=== PATIENT | male | born 1965 | race Caucasian/White ===

== ENCOUNTER 2021-12-24 13:03 | Observation (INO) ==
--- NOTE | 2021-12-24 13:27 | Emergency Department Note ---
Skin/Abscess/FB HPI <Faustino Pérez PA-C - Last Filed: 12/24/21 16:05> General Chief complaint: Skin/Abscess/Rash Stated complaint: skin Time Seen by Provider: 12/24/21 13:11 Source: patient Mode of arrival: ambulatory Limitations: no limitations History of Present Illness HPI Narrative: Narrative: 56-year-old gentleman with a history of lifelong smoking and diabetes presents the ER to be evaluated for an abscess in his mid back that has eschar and has been draining purulence for about a month. He also had a draining abscess on his left shoulder. He denies fever, chills, bodies, nausea, vomiting, chest pain, chest pressure. He is concerned that the abscess keeps recurring and soi ling his shirts. He states it feels with pressure and feels hot sometimes and then drains and then recollects. He denies any other complaints at this time. Related Data Home Medications Medication Instructions Recorded Confirmed No Known Home Meds 12/24/21 12/24/21 Allergies Allergy/AdvReac Type Severity Reaction Status Date / Time lorazepam Allergy Severe Anaphylaxis Verified 12/24/21 13:05 Review of Systems <Faustino Pérez PA-C - Last Filed: 12/24/21 16:05> ROS ROS Narrative: Narrative: All systems ED: reviewed and negative except as stated. PFS <Faustino Pérez PA-C - Last Filed: 12/24/21 16:05> Narrative Patient History Narrative: Narrative: Medical/Surgical/Family History All Active Problems (Updated 12/24/21 @ 16:05 by Faustino Pérez PA-C) Abscess of skin or subcutaneous tissue (Acute) Abscess (Acute) Social History Smoking Status: Current every day smoker Exam <Faustino Pérez PA-C - Last Filed: 12/24/21 16:05> Narrative Narrative: Narrative: Gen: No acute distress Eyes: PERRL, no conjunctival injection , and symmetrical lids. Sclerae non icteric HENMT: Normocephalic Atraumatic head, external nose and ears. Moist MM. CVS: +S1/S2, No murmurs or gallops. Radial pulses 2+ and equal bilat. No swelling RESP: Unlabored respiratory effort . Clear to auscultation bilaterally (CTAB). No noted wheezes rales or ronchi. Back: Large 10 to 15 cm abscess mid back with purulent drainage and eschar with concern for possible malignancy., Left shoulder blade drained open wound without fluctuance or purulence it is open and exposed and appears to be healing appropriately Skin: Warm, Dry . No rashes or lesions . Cap refill less than 2. Psych: Awake, Alert, & Oriented (AAO) x3. Appropriate mood and affect . General Limitations: no limitations Course <Faustino Pérez PA-C - Last Filed: 12/24/21 16:05> Vital Signs Vital signs: Vital Signs Temperature 97.2 F 12/24/21 13:03 Pulse Rate 101 H 12/24/21 13:03 Respiratory Rate 20 12/24/21 13:03 Blood Pressure 128/76 12/24/21 13:03 Pulse Oximetry (%) 97 12/24/21 13:03 Temperature 97.2 F 12/24/21 13:03 Pulse Rate 78 12/24/21 16:26 Respiratory Rate 20 12/24/21 13:03 Blood Pressure 146/61 12/24/21 16:26 Pulse Oximetry (%) 97 12/24/21 13:03 MDM <Faustino Pérez PA-C - Last Filed: 12/24/21 16:05> MDM Narrative Medical decision making narrative: Narrative: Patient has a 10 to 15 cm in diameter abscess with eschar and concern for pos sible malignancy on his back. This looks like it might need surgical drainage and washout. Dr. Guzman the on- call surgeon will be contacted. CBC, CMP, lactate and blood cultures and CRP were ordered at this time. Patient last ate at 10. CBC: Elevated white count with left shift CMP: Glucose of 453 otherwise unremarkable Lactate: No elevation Blood cultures: Pending CRP: 9.[address] Guzman: Requested ultrasound to evaluate abscess US: 222ml in abscess pocket Dr Guzman: He agreed to come down and evaluate the patient in the ER Dr. Guzman will take the patient to surgery at 5:00, we will start him on vancomycin and Zosyn in the ER. Lab Data Result diagrams: 12/24/21 13:25 12/24/21 13:25 Labs: Lab Results 12/24/21 12/24/21 12/24/21 Range/Units 13:25 13:25 13:25 WBC 16.1 H (4.5-11.0) K/mcL RBC 4.72 (4.63-6.08) M/mcL Hgb 13.1 L (13.7-17.5) g/dL Hct 39.1 L (40.1-51.0) % MCV 82.8 (80.0-100.0) fL MCH 27.8 (26.0-34.0) pg MCHC 33.5 (31.0-36.0) g/dL RDW 12.3 (11.5-14.5) % Plt Count 485 H (140-440) K/mcL MPV 8.7 (7.4-10.4) fL Neut % (Auto) 79.6 H (38.0-78.0) % Lymph % (Auto) 11.6 L (15.5-49.0) % Shannon % (Auto) 6.3 (1.0-12.0) % Eos % (Auto) 1.9 (0.0-7.0) % Baso % (Auto) 0.6 (0.0-2.0) % Lymph # (Auto) 1.87 (1.50-4.80) K/mcL Shannon # (Auto) 1.02 H (0.10-0.90) K/mcL Eos # (Auto) 0.31 (0.00-0.70) K/mcL Baso # (Auto) 0.10 (0.00-0.30) K/mcL Absolute Neutrophils 12.84 H (1.80-8.00) K/mcL VBG Lactic Acid 1.0 (0.5-2.0) mmol/L Sodium 132 L (133-145) mmol/L Potassium 4.0 (3.3-5.1) mmol/L Chloride 96 (96-108) mmol/L Carbon Dioxide 25 (22-30) mmol/L Anion Gap 11.0 (8.0-16.0) BUN 12 (6-20) mg/dL Creatinine 0.6 L (0.7-1.2) mg/dL GFR Calculation 114 Glucose 453 H* (70-105) mg/dL Calcium 8.8 (8.6-10.4) mg/dL Total Bilirubin 0.3 (0.1-1.0) mg/dL AST 14 (<40) U/L ALT 22 (<40) U/L Alkaline Phosphatase 139 H (39-117) U/L C-Reactive Protein 9.80 H (0.03-0.80) mg/dL Total Protein 7.1 (5.9-8.4) gm/dL Albumin 3.0 L (3.2-5.2) gm/dL Globulin 4.1 H (2.2-3.7) gm/dL Albumin/Globulin Ratio 0.7 L (1.0-2.3) ED POC Tests ED POC Tests: RUI - SARS Antigen Negative Discharge Plan Patient/Caregiver Discharge Instructions Pt seen by [employer]/PA only: Yes Clinical Impression: Abscess of skin or subcutaneous tissue Patient Disposition: Xfer As Outpt/Obs ([facility]) Condition: Fair Discharge Date/Time: 12/24/21 16:40
[2021-12-24] MEDS ORDERED: morphine 4 MG/ML VIAL IV ONE (14:12)
[2021-12-24 14:13] LABS: Basophils % (Auto) 0.6 % (0.0-2.0); Eosinophils # (Auto) 0.31 K/mcL (0.00-0.70); Eosinophils % (Auto) 1.9 % (0.0-7.0); Hematocrit 39.1 % (40.1-51.0); Hemoglobin 13.1 g/dL (13.7-17.5); Lymphocytes # (Auto) 1.87 K/mcL (1.50-4.80); Lymphocytes % (Auto) 11.6 % (15.5-49.0); Mean Cell Volume 82.8 fL (80.0-100.0); Mean Corpuscular HGB Conc 33.5 g/dL (31.0-36.0); Mean Platelet Volume 8.7 fL (7.4-10.4); Monocytes # (Auto) 1.02 K/mcL (0.10-0.90); Monocytes % (Auto) 6.3 % (1.0-12.0); Neutrophils % (Auto) 79.6 % (38.0-78.0); Platelet Count 485 K/mcL (140-440); RBC 4.72 M/mcL (4.63-6.08); Red Cell Distribution Width 12.3 % (11.5-14.5); WBC 16.1 K/mcL (4.5-11.0)
[2021-12-24 14:51] LABS: ALT/SGPT 22 U/L (<40); AST/SGOT 14 U/L (<40); Albumin/Globulin Ratio 0.7 (1.0-2.3); Alkaline Phosphatase 139 U/L (39-117); Bilirubin,Total 0.3 mg/dL (0.1-1.0); Blood Urea Nitrogen 12 mg/dL (6-20); Calcium 8.8 mg/dL (8.6-10.4); Carbon Dioxide 25 mmol/L (22-30); Chloride 96 mmol/L (96-108); Globulin 4.1 gm/dL (2.2-3.7); Glomerular Filtration Rate 114; Glucose 453 mg/dL (70-105)
[2021-12-24] MEDS ORDERED: VANCOMYCIN PER PHARMACY IV ONE (16:03)
[2021-12-24] MEDS ORDERED: PIPERACILLIN SODIUM/TAZOBACTAM 4.5 GM in DEXTROSE 5% IN WATER 50 ML IV ONE (16:03)
--- NOTE | 2021-12-24 16:19 | Ultrasound Report ---
CLINICAL INFORMATION: Back abscess COMPARISON: None. FINDINGS: In the subcutaneous region there is a large 12.3 x 13 x 3 cm heterogeneous avascular area which could indicate abscess or necrosis. IMPRESSION: 12 x 13 cm subdermal lesion could indicate abscess or necrosis. Suggest surgical referral for drainage and debridement Interpreted and Authenticated by: Alex Lay 12/24/21
[2021-12-24] MEDS ORDERED: VANCOMYCIN 1,500 MG in 0.9 % SODIUM CHLORIDE 500 ML IV ONE (16:30)
--- NOTE | 2021-12-24 17:05 | General Surgery Consult Note ---
HPI Data of Consult Consult date: 12/24/21 Requesting physician: Sander Petty Primary Care Provider: PCP No Consult Narrative Patient Information: Note initiated : 12/24/21 at 4:55 pm Service Date, if different from initiated Date: [] Patient: Shubham Stoddard 56 y/o M admitted on for skin. Chief Complaint: [Back Abscess] Mr Stoddard is seen in consultation today in the ER after presenting earlier today with a large necrotic appearing abscess of the mid upper back. He has had recurrent soft tissue infections here and elsewhere of uncertain etiology. He doesn't engage in much of the way of maintenance health care and denies any home medications. He denies known cardiopulmonary issues and is not on any oral anticoagulants. He smokes and denies any known diabetes. An US was done and confirmed a large abscess. Chief complaint: Back Abscess Reason for consult: Back Abscess cc:: CC: Review of Systems All systems: reviewed and no additional remarkable complaints except as stated PFSH PFSH All Active Problems (Updated 12/24/21 @ 16:05 by Faustino Pérez PA-C) Abscess of skin or subcutaneous tissue (Acute) Abscess (Acute) MEDS/ALLERGIES Home Medications and Allergies Home Medications Medication Instructions Recorded Confirmed Type No Known Home Meds 12/24/21 12/24/21 History Allergies Allergy/AdvReac Type Severity Reaction Status Date / Time lorazepam Allergy Severe Anaphylaxis Verified 12/24/21 13:05 Physical Examination Vital Signs Vital signs: Temp Pulse Resp BP Pulse Ox 97.2 F 78 20 146/61 97 12/24/21 13:03 12/24/21 16:26 12/24/21 13:03 12/24/21 16:26 12/24/21 13:03 General physical appearance General physical exam: other (awake and fully conversant) Eyes Eye exam: normal ocular movement ENT ENT exam: normal pinna; negative nasal discharge Head Head exam IM: Present atraumatic, normal inspection and normocephalic Neck Neck exam: trachea midline and no lymphadenopathy Cardiovascular Cardiovascular exam IM: Present normal rate and rhythm and RRR Respiratory Respiratory exam: normal respiratory effort and other (no distress ) Abdomen Abdomen: Present soft and non tender Integumentary Integumentary: Present other (there is a large necrotic appearing abscess with mild surrounding cellulitis and active drainage in the upper central mid back. Additionally, an open wound is noted on the Left Posterior Shoulder that looks clean with granulation present ) Neurologic Neurologic: Present other (grossly intact, fully alert and oriented ) Psychiatric Psychiatric: Present oriented to time, oriented to person and oriented to place Results Labs Result diagrams: 12/24/21 13:25 12/24/21 13:25 Labs: Abnormal lab results 12/24/21 12/24/21 Range/Units 13:25 13:25 WBC 16.1 H (4.5-11.0) K/mcL Hgb 13.1 L (13.7-17.5) g/dL Hct 39.1 L (40.1-51.0) % Plt Count 485 H (140-440) K/mcL Neut % (Auto) 79.6 H (38.0-78.0) % Lymph % (Auto) 11.6 L (15.5-49.0) % [place] # (Auto) 1.02 H (0.10-0.90) K/mcL Absolute Neutrophils 12.84 H (1.80-8.00) K/mcL Sodium 132 L (133-145) mmol/L Creatinine 0.6 L (0.7-1.2) mg/dL Glucose 453 H* (70-105) mg/dL Alkaline Phosphatase 139 H (39-117) U/L C-Reactive Protein 9.80 H (0.03-0.80) mg/dL Albumin 3.0 L (3.2-5.2) gm/dL Globulin 4.1 H (2.2-3.7) gm/dL Albumin/Globulin Ratio 0.7 L (1.0-2.3) Diabetes panel 12/24/21 Range/Units 13:25 Sodium 132 L (133-145) mmol/L Potassium 4.0 (3.3-5.1) mmol/L Chloride 96 (96-108) mmol/L Carbon Dioxide 25 (22-30) mmol/L BUN 12 (6-20) mg/dL Creatinine 0.6 L (0.7-1.2) mg/dL Glucose 453 H* (70-105) mg/dL Calcium 8.8 (8.6-10.4) mg/dL AST 14 (<40) U/L ALT 22 (<40) U/L Alkaline Phosphatase 139 H (39-117) U/L Total Protein 7.1 (5.9-8.4) gm/dL Albumin 3.0 L (3.2-5.2) gm/dL Calcium panel 12/24/21 Range/Units 13:25 Calcium 8.8 (8.6-10.4) mg/dL Albumin 3.0 L (3.2-5.2) gm/dL Pituitary panel 12/24/21 Range/Units 13:25 Sodium 132 L (133-145) mmol/L Potassium 4.0 (3.3-5.1) mmol/L Chloride 96 (96-108) mmol/L Carbon Dioxide 25 (22-30) mmol/L BUN 12 (6-20) mg/dL Creatinine 0.6 L (0.7-1.2) mg/dL Glucose 453 H* (70-105) mg/dL Calcium 8.8 (8.6-10.4) mg/dL Adrenal panel 12/24/21 Range/Units 13:25 Sodium 132 L (133-145) mmol/L Potassium 4.0 (3.3-5.1) mmol/L Chloride 96 (96-108) mmol/L Carbon Dioxide 25 (22-30) mmol/L BUN 12 (6-20) mg/dL Creatinine 0.6 L (0.7-1.2) mg/dL Glucose 453 H* (70-105) mg/dL Calcium 8.8 (8.6-10.4) mg/dL Total Bilirubin 0.3 (0.1-1.0) mg/dL AST 14 (<40) U/L ALT 22 (<40) U/L Alkaline Phosphatase 139 H (39-117) U/L Total Protein 7.1 (5.9-8.4) gm/dL Albumin 3.0 L (3.2-5.2) gm/dL All other labs normal. A/P Narrative A/P Narrative: Necrotic Abscess of the mid central Upper Back Recommend proceeding to the OR for a formal I&D Issues discussed at length including a full review of Risks, Benefits, Potential Complications and Alternative Treatment Options which are all reviewed at length They are in agreement with the plan and would like to proceed Time Spent With Patient Time: Total time spent is greater than 50% in coordination of care (as documented) at patient's floor/unit and/or counseling patient:
[2021-12-24] MEDS ORDERED: KETAMINE 50 MG/ML Syringe (ANEST) IV ONE (17:35)
[2021-12-24] MEDS ORDERED: TRANEXAMIC ACID 1,000 MG/10 ML VIAL ONE (17:35)
[2021-12-24] MEDS ORDERED: ONDANSETRON 4 MG/2 ML VIAL ONE (17:35)
[2021-12-24] MEDS ORDERED: SUCCINYLCHOLINE 20 MG/ML ML IV ONE (17:35)
[2021-12-24] MEDS ORDERED: LIDOCAINE HCL/PF 100 MG/5 ML SYRINGE IV ONE (17:35)
[2021-12-24] MEDS ORDERED: PROPOFOL 200 MG/20 ML VIAL IV ONE (17:35)
[2021-12-24] MEDS ORDERED: MEPERIDINE 25 MG/ML VIAL IV PRN (18:13)
[2021-12-24] MEDS ORDERED: PROMETHAZINE 25 MG/ML VIAL IV PRN (18:13)
[2021-12-24] MEDS ORDERED: NALOXONE HCL 0.4 MG/ML VIAL IV PRN (18:13)
[2021-12-24] MEDS ORDERED: ONDANSETRON 4 MG/2 ML VIAL IV PRN ×2 (18:13→19:18)
[2021-12-24] MEDS ORDERED: diphenhydrAMINE 50 MG/ML VIAL IV PRN (18:13)
[2021-12-24] MEDS ORDERED: ACETAMINOPHEN 1,000 MG/100 ML BAG IV ONE (18:13)
[2021-12-24] MEDS ORDERED: HYDROmorphone 0.5 MG/0.5 ML SYRINGE IV PRN ×2 (18:13→19:18)
[2021-12-24] MEDS ORDERED: IPRATROPIUM/ALBUTEROL 3 ML AMPUL.NEB NEB PRN (18:13)
[2021-12-24] MEDS ORDERED: LACTATED RINGERS 250 ML IV PRN (18:13)
[2021-12-24] MEDS ORDERED: fentaNYL 100 MCG/2 ML VIAL IV PRN (18:13)
[2021-12-24] MEDS ORDERED: LACTATED RINGERS 1,000 ML IV SCH (18:15)
[2021-12-24] MEDS ORDERED: PIPERACILLIN SODIUM/TAZOBACTAM 3.375 GM in DEXTROSE 5% IN WATER 50 ML IV SCH (19:30)
--- NOTE | 2021-12-24 19:31 | Brief Operative Note ---
Brief Operative Note Date of procedure: 12/24/21 Pre-op diagnosis: Necrotic Back Abscess Post-op diagnosis: same Procedure: Incision and Drainage Necrotic Back Abscess Grafts/Implants: No Anesthesia: GETA Findings: large necrotic back abscess with voluminous pus Complications: none Surgeon: Manuel Guzman Estimated blood loss (cc): 100 Specimens Removed/Pathology: other (fluid sent for culture; necrotic eschar sent to pathology ) Condition: stable Disposition: PACU
[2021-12-24] MEDS: 0.9 % SODIUM CHLORIDE 1,000 ML IV SCH (19:41)
[2021-12-24] MEDS: oxyCODONE HCL 5 MG TABLET PO PRN ×2 (19:43→23:48)
[2021-12-24] MEDS: PIPERACILLIN SODIUM/TAZOBACTAM 3.375 GM in DEXTROSE 5% IN WATER 50 ML IV SCH (23:28)
[2021-12-25] MEDS ORDERED: BENZOCAINE/MENTHOL 1 LOZENGE PO PRN (03:27)
[2021-12-25] MEDS ORDERED: BENZOCAINE/MENTHOL 1 LOZENGE PO ONE (03:35)
[2021-12-25] MEDS: oxyCODONE HCL 5 MG TABLET PO PRN ×2 (05:02→12:02)
--- NOTE | 2021-12-25 07:52 | EKG ---
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 Measurements Intervals Mcdonald Rate: 85 P: 43 NC: 152 QRS: 74 QRSD: 94 T: 37 QT: 366 QTc: 436 Interpretive Statements Sinus rhythm ST elev, probable normal early repol pattern Electronically Signed On 12-25-2021 7:52:01 PST by Andrew Campbell D.O. /store/[email or web address]/[id number]
[2021-12-25] MEDS ORDERED: MUPIROCIN OINT 2% 22GM NARES SCH (09:00)
[2021-12-25] MEDS: PIPERACILLIN SODIUM/TAZOBACTAM 3.375 GM in DEXTROSE 5% IN WATER 50 ML IV SCH ×2 (09:10→16:23)
--- NOTE | 2021-12-25 10:43 | General Surgery Progress Note ---
SUBJECTIVE Subjective Patient information: Note initiated : 12/25/21 at 10:36 am Service Date, if different from initiated Date: [] Patient: Shubham Stoddard 56 y/o M admitted on 12/24/21 for skin. Chief Complaint: [POD #1 I&D Large Necrotic Back Abscess] Doing well this am with minimal pain and discomfort Constitutional Vitals: Vital Signs Temp Pulse Resp BP Pulse Ox 98.6 F 91 H 16 135/72 97 12/25/21 07:25 12/25/21 07:25 12/25/21 07:25 12/25/21 07:25 12/25/21 07:25 Period Temp Pulse Resp BP Sys/Cody Pulse Ox Last 24 Hr 97.0 F-98.7 F 78-101 12-21 113-155/47-143 94-100 Intake and Output 12/24/21 12/25/21 12/25/21 21:59 05:59 13:59 Intake Total 1550 650 800 Output Total 100 1075 500 Balance 1450 -425 300 Weight 216 lb 6.4 oz Intake & Output: Intake & Output 12/24/21 12/25/21 12/25/21 21:59 05:59 13:59 Intake Total 1550 650 800 Output Total 100 1075 500 Balance 1450 -425 300 Weight 216 lb 6.4 oz Intake: IV 150 50 Zosyn 3.375 gm In Dextrose 5% 50 in Water 50 ml @ 100 mls/hr IV Q8H CHITO Rx#:[id number] Zosyn 4.5 gm In Dextrose 5% in 50 Water 50 ml @ 100 mls/hr IV ONCE ONE Rx#:[id number] Oral 600 800 IV - Manual Only 1400 Output: Void Amount 1075 500 Estimated Blood Loss 100 Other: Urine Appearance Clear Clear Urine Color Pale Bright Yellow General appearance: no acute distress Respiratory Additional comments: no respiratory distress Cardiovascular Cardiovascular exam: Present RRR Back Exam Additional comments: dressings in place A/P Assessment and plan (1) Abscess of skin or subcutaneous tissue: Assessment and plan: Post I&D Large Back Abscess Doing Well VAC Placement and arrangement for home wound care Discharge unlikely for today Status: Acute Time Spent With Patient Time: Total time spent is greater than 50% in coordination of care (as documented) at patient's floor/unit and/or counseling patient:
[2021-12-25] MEDS: 0.9 % SODIUM CHLORIDE 1,000 ML IV SCH (10:44)
--- NOTE | 2021-12-29 07:56 | Operative Note ---
DATE OF OPERATION: 12/24/2021 PREOPERATIVE DIAGNOSIS: Large necrotic mid back abscess. POSTOPERATIVE DIAGNOSIS: Large necrotic mid back abscess. OPERATIVE PROCEDURE: Incision and drainage with debridement of large necrotic back abscess. SURGEON: Byron. Thomas M.D. ANESTHESIA: General. POSITION: Prone. INDICATIONS: The patient is a 56-year-old male who presented to the Emergency Room earlier today with a large necrotic infectious mass on the mid back that was consistent with an abscess. There was purulent drainage from it. He had an extremely large necrotic eschar over this. He had an elevated white count, was slightly febrile and had clear Indications for drainage. Risks, benefits, potential complications, and alternative treatment options were all discussed with him at length and he had a good understanding of all issues including the need for postoperative wound care for an open wound, potential need for additional surgical debridements and other concerns and other potential and expected findings as the etiology of this is not certain. He gave full informed consent and wished to proceed with the case. DESCRIPTION OF PROCEDURE: The patient was taken to the OR and placed under general anesthesia and intubated. He was then transferred to the OR table in a prone position with the entire OR team working carefully to position him and pad him appropriately. Once he was positioned carefully, bilateral SCDs were applied. All pressure sensitive areas were carefully padded. The back was then prepped and draped widely in a sterile fashion. Procedure began with the removal of the large necrotic husk of eschar, which was roughly 4 x 7 cm in dimension. It was removed in its entirety and sent to pathology utilizing primarily cautery. We then entered the abscess cavity and a tremendous amount of purulent drainage was drained. This was cultured, which was sent to the lab for Gram stain and culture. We irrigated the area out extensively and debrided to healthy tissues in all directions. The abscess itself was down to the premuscular fascia of the back. This appeared to be largely intact and not violated. There was no evidence of necrotizing fasciitis. This was a superficial abscess that extended down to the level of the musculature from the skin. There were no sinus pockets or other areas of connectivity noted. We then after adequate debridement, utilized the pulse lavage to further clean things up and then spent quite a bit of time utilizing cautery to get control of the oozing that was fairly extensive throughout the area. The wound bed and the adjacent edges were very well vascularized. All necrotic tissue was debrided away. Once we had felt we had good, adequate hemostasis, the wound was packed with several moist Kerlix dressings. Pressure was held in place to make sure that there was good hemostasis. ABD pads were placed over this and this completed the procedure. The patient was then awakened, extubated, and transferred to PACU in satisfactory condition. No apparent complications or issues. Sponge, and instrument counts were correct. Findings were discussed above. ESTIMATED BLOOD LOSS: Roughly 100 mL. FINDINGS: As discussed above. BW:charleen Job ID: [id number] Doc ID: [id number] Manuel Guzman M.D.
== END 2021-12-25 18:25 | disposition home or self-care (01) ==
LOC: ED 13:03 → SUR 16:38 → MEDSUR 19:23 → INTOOBSV 19:23
PROVIDERS: ADMIT Surgery Surgical Critical Care; ATTEND Surgery Surgical Critical Care